=== PATIENT | male | born 1995 | race African-American/Black ===

== ENCOUNTER 2016-12-16 01:47 | Emergency (ER) | payer OTHER ==
[~2016-12-16] VITALS: Ht 170.2 cm; Wt 68.9 kg
[~2016-12-16 01:47] MED LIST: MOBIC15 MG PO; TRAMADOL HCL50 MG PO; ULTRAM50 MG PO
[2016-12-16 02:51] LABS: EOSINOPHIL (%) 2.3 % (0-5); EOSINOPHIL COUNT 0.2 K/uL (0-0.3); HEMATOCRIT 45.8 % (38.0-50.0); IMMATURE GRANULOCYTE (%) 0.3 % (0.0-0.7); LYMPHOCYTE COUNT 2.2 K/uL (1.0-2.8); MCH 25.7 PG (29.0-34.0); MCHC 32.1 G/DL (30.0-36.0); MCV 80.2 FL (86-99); MEAN PLAT.VOLUME 10.4 uM^3 (9.0-12.4); MONOCYTE (%) 10.4 % (3-12); MONOCYTE COUNT 0.7 K/uL (0-0.8); NEUTROPHIL (%) 55.7 % (45-76); PLATELET COUNT 262 K/uL (156-360); RBC DIS.WIDTH-CV 14.3 % (11.8-14.6); RBC DIS.WIDTH-SD 41.6 % (39-53); RED BLOOD COUNT 5.71 M/uL (4.00-5.50); WHITE BLOOD COUNT 7.1 K/uL (4.1-10.2)
[2016-12-16 04:05] LABS: CHLORIDE 106 mEq/L (99-109); POTASSIUM 3.9 mEq/L (3.7-5.4); SODIUM 138 mEq/L (136-147)
[2016-12-16 04:06] LABS: GLUCOSE 84 mg/dL (70-99)
[2016-12-16 04:08] LABS: ANION GAP 9 MEQ/L (2-14)
[2016-12-16 04:10] LABS: GFR ESTIMATE (CALCULATED) > 59 mL/min/; SERUM ETHYL ALCOHOL < 10 mg/dL
[2016-12-16 04:11] LABS: UREA NITROGEN (BUN) 14 mg/dL (9-23)
[2016-12-16 04:13] LABS: LIPASE 21 U/L (1.0-51.0)
[2016-12-16] MEDS ORDERED: PERCOCET 5/31 TABLET PO (04:14)
[2016-12-16] MEDS ORDERED: MOTRIN800 MG PO (04:14)
[2016-12-16] MEDS ORDERED: FLEXERIL5 MG PO (04:14)
[2016-12-16 04:19] LABS: ADD MIUA? YES; BILIRUBIN NEGATIVE; BLOOD NEGATIVE; GLUCOSE (STRIP) NEGATIVE; KETONES 5; LEUKOCYTES NEGATIVE; NITRITE NEGATIVE; PROTEIN (STRIP) 100
[2016-12-16 04:20] LABS: COLOR YELLOW ((YELLOW))
[2016-12-16 04:26] LABS: BACTERIA NONE SEEN /HPF; EPITHELIAL CELLS NONE SEEN /HPF; MUCUS TRACE /LPF; RED BLOOD CELLS 0-5 /HPF (0-5); UCUL ADDED? NO; WHITE BLOOD CELLS 0-5 /HPF (0-5)
[2016-12-16 04:27] LABS: COCAINE NEGATIVE (150 ng/mL); METHAMPHETAMINE NEGATIVE (500 ng/mL); OPIATES (MORPHINE) PRESUMPTIVE POSITIVE (100 ng/mL); PHENCYCLIDINE NEGATIVE (25 ng/mL); THC CANNABINOIDS NEGATIVE (50 ng/mL)
[2016-12-16 04:28] LABS: ADD MEDTOX COMMENT Y; AMPHETAMINE NEGATIVE (500 ng/mL); BARBITURATES NEGATIVE (200 ng/mL); BENZODIAZEPINES NEGATIVE (150 ng/mL); INTERNAL CONTROLS VALID? YES; METHADONE NEGATIVE (200 ng/mL); OXYCODONE PRESUMPTIVE POSITIVE (100 ng/mL); PROPOXYPHENE NEGATIVE (300 ng/mL); TRICYCLIC ANTIDEPRESSANTS NEGATIVE (300 ng/mL)
[2016-12-16 05:14] VITALS: BP 115/75
== END 2016-12-16 05:25 | disposition home or self-care (01) ==
LOC: EME → TRA 01:47
PROVIDERS: Emergency Medicine
DX: S32.029A Unspecified fracture of second lumbar vertebra, initial encounter for closed fracture (principal); S32.039A Unspecified fracture of third lumbar vertebra, initial encounter for closed fracture; S00.81XA Abrasion of other part of head, initial encounter; T14.8 Other injury of unspecified body region; V86.59XA Driver of other special all-terrain or other off-road motor vehicle injured in nontraffic accident, initial encounter; Y92.488 Other paved roadways as the place of occurrence of the external cause; M54.2 Cervicalgia
CPT/HCPCS: 70450; 70498; 71260; 72126; 72129; 72132; 74177; 80048; 81003; 83690; 84999; 85025; 86850; 86900; 86901; 99281; 99284; G0480; J2270; J2405; J7030

== ENCOUNTER → 2016-12-27 | Outpatient (CLI) | payer SELFPAY ==
[~2016-12-27] MED LIST changes: +FLEXERIL5 MG PO; +MOTRIN800 MG PO; +PERCOCET 5/31 TABLET PO
== END | disposition home or self-care (01) ==
LOC: AMB 15:00
DX: S32.039A Unspecified fracture of third lumbar vertebra, initial encounter for closed fracture (principal); S32.029A Unspecified fracture of second lumbar vertebra, initial encounter for closed fracture; V29.9XXA Motorcycle rider (driver) (passenger) injured in unspecified traffic accident, initial encounter; Y93.55 Activity, bike riding
CPT/HCPCS: 99212

== ENCOUNTER 2018-01-04 13:45 | Emergency (ER) | payer OTHER ==
[2018-01-04 13:55] LABS: BASOPHIL (%) 0.6 % (0-1); BASOPHIL COUNT 0.1 K/uL (0-0.1); EOSINOPHIL (%) 1.1 % (0-5); EOSINOPHIL COUNT 0.1 K/uL (0-0.3); HEMATOCRIT 47.7 % (38.0-50.0); IMMATURE GRANULOCYTE (%) 0.2 % (0.0-0.7); LYMPHOCYTE (%) 39.4 % (15-42); LYMPHOCYTE COUNT 3.2 K/uL (1.0-2.8); MCH 26.6 PG (29.0-34.0); MCHC 31.4 G/DL (30.0-36.0); MCV 84.7 FL (86-99); MONOCYTE COUNT 0.7 K/uL (0-0.8); NEUTROPHIL (%) 50.7 % (45-76); NEUTROPHIL COUNT 4.2 K/uL (1.8-6.4); PLATELET COUNT 278 K/uL (156-360); RBC DIS.WIDTH-SD 43.3 % (39-53); RED BLOOD COUNT 5.63 M/uL (4.00-5.50); WHITE BLOOD COUNT 8.2 K/uL (4.1-10.2)
[2018-01-04 14:03] LABS: AMYLASE 87 IU/L (1-118); CHLORIDE 107 mEq/L (99-109); POTASSIUM 3.8 mEq/L (3.7-5.4); SODIUM 145 mEq/L (136-147)
[2018-01-04 14:05] LABS: GLUCOSE 129 mg/dL (70-99)
[2018-01-04 14:08] LABS: SERUM ETHYL ALCOHOL < 10 mg/dL
[2018-01-04 14:09] LABS: CREATININE 1.8 mg/dL (0.6-1.3); GFR ESTIMATE (CALCULATED) > 59 mL/min/ (58.99-99999)
[2018-01-04 14:10] LABS: UREA NITROGEN (BUN) 12 mg/dL (9-23)
[2018-01-04 14:12] LABS: LIPASE 13 U/L (1.0-51.0)
[2018-01-04 15:42] LABS: APPEARANCE CLEAR ((CLEAR)); BILIRUBIN NEGATIVE; BLOOD NEGATIVE; COLOR COLORLESS ((YELLOW)); GLUCOSE (STRIP) NEGATIVE; KETONES NEGATIVE; LEUKOCYTES NEGATIVE; NITRITE NEGATIVE; PROTEIN (STRIP) NEGATIVE; SPECIFIC GRAVITY 1.024 (1.000-1.030); UCUL ADDED? NO; UROBILINOGEN 0.2 MG/DL (0.2-1.0)
[2018-01-04 15:54] LABS: AMPHETAMINE NEGATIVE (500 ng/mL); BARBITURATES NEGATIVE (200 ng/mL); BENZODIAZEPINES NEGATIVE (150 ng/mL); BUPRENORPHINE NEGATIVE (10 ng/mL); COCAINE NEGATIVE (150 ng/mL); METHADONE NEGATIVE (200 ng/mL); METHAMPHETAMINE NEGATIVE (500 ng/mL); OPIATES (MORPHINE) NEGATIVE (100 ng/mL); OXYCODONE NEGATIVE (100 ng/mL); PHENCYCLIDINE NEGATIVE (25 ng/mL); PROPOXYPHENE NEGATIVE (300 ng/mL); THC CANNABINOIDS NEGATIVE (50 ng/mL); TRICYCLIC ANTIDEPRESSANTS NEGATIVE (300 ng/mL)
[2018-01-04] MEDS ORDERED: MOTRIN600 MG PO (17:10)
[2018-01-04] MEDS ORDERED: KEFLEX500 MG PO (17:10)
[2018-01-05] MEDS ORDERED: PERCOCET 5/31 TABLET PO (00:18)
== END 2018-01-04 17:48 | disposition home or self-care (01) ==
LOC: TRA 13:45
PROVIDERS: Emergency Medicine
PROC: 0HQJXZZ Repair Left Upper Leg Skin, External Approach (ICD-10-PCS; principal; 2018-01-04)
PROC: 30233N1 Transfusion of Nonautologous Red Blood Cells into Peripheral Vein, Percutaneous Approach (ICD-10-PCS; principal; 2018-01-04)
DX: S71.112A Laceration without foreign body, left thigh, initial encounter (principal); S21.112A Laceration without foreign body of left front wall of thorax without penetration into thoracic cavity, initial encounter; E87.2 Acidosis; X99.1XXA Assault by knife, initial encounter
CPT/HCPCS: 71045; 71260; 73706; 74177; 80047; 80048; 81003; 82150; 83605; 83690; 85025; 86850; 86900; 86901; 86920; 99281; 99285; G0480; J0690; J2405; J3010; P9016

== ENCOUNTER 2018-01-04 19:13 | Emergency (ER) | payer OTHER ==
[~2018-01-04] VITALS: Ht 172.7 cm; Wt 68.9 kg
[~2018-01-04 19:13] MED LIST changes: +KEFLEX500 MG PO; +MOTRIN600 MG PO
[2018-01-04 20:21] LABS: BASOPHIL (%) 0.2 % (0-1); EOSINOPHIL (%) 0 % (0-5); HEMATOCRIT 37.1 % (38.0-50.0); IMMATURE GRANULOCYTE (%) 0.5 % (0.0-0.7); LYMPHOCYTE (%) 5.3 % (15-42); LYMPHOCYTE COUNT 0.7 K/uL (1.0-2.8); MCH 26.8 PG (29.0-34.0); MCHC 33.2 G/DL (30.0-36.0); MCV 80.8 FL (86-99); MONOCYTE (%) 6.2 % (3-12); MONOCYTE COUNT 0.8 K/uL (0-0.8); NEUTROPHIL (%) 87.8 % (45-76); NEUTROPHIL COUNT 11.7 K/uL (1.8-6.4); PLATELET COUNT 203 K/uL (156-360); RBC DIS.WIDTH-SD 40.7 % (39-53); RED BLOOD COUNT 4.59 M/uL (4.00-5.50); WHITE BLOOD COUNT 13.3 K/uL (4.1-10.2)
[2018-01-04 20:23] LABS: HEMOGLOBIN 12.3 G/DL (12.5-16.6)
[2018-01-04 20:29] LABS: CHLORIDE 107 mEq/L (99-109); POTASSIUM 3.5 mEq/L (3.7-5.4)
[2018-01-04 20:31] LABS: GLUCOSE 87 mg/dL (70-99); SODIUM 137 mEq/L (136-147); TOTAL PROTEIN 5.9 g/dL (6.4-8.3)
[2018-01-04 20:33] LABS: TOTAL BILIRUBIN 1.2 mg/dL (0.0-1.0)
[2018-01-04 20:35] LABS: ALKALINE PHOSPHATASE 68 IU/L (3-129); GFR ESTIMATE (CALCULATED) > 59 mL/min/ (58.99-99999)
[2018-01-04 20:36] LABS: UREA NITROGEN (BUN) 10 mg/dL (9-23)
[2018-01-04 20:37] LABS: AST (GOT) 21 IU/L (2-34)
[2018-01-04 20:38] LABS: ALT (GPT) 10 IU/L (3-49)
[2018-01-04 20:39] LABS: CREATININE 1.3 mg/dL (0.6-1.3)
[2018-01-05] MEDS ORDERED: PERCOCET 5/31 TABLET PO (00:18)
[2018-01-05 00:40] VITALS: BP 118/53
== END 2018-01-05 00:42 | disposition home or self-care (01) ==
LOC: EME 19:13
PROVIDERS: Emergency Medicine
DX: S31.823A Puncture wound without foreign body of left buttock, initial encounter (principal)
CPT/HCPCS: 71045; 80053; 85025 91; 99281; 99284; J0690; J1885; J2405; J7120

== ENCOUNTER 2018-01-14 12:50 | Emergency (ER) | payer OTHER ==
[~2018-01-14] VITALS: Ht 172.7 cm; Wt 68.9 kg
[2018-01-14 13:11] VITALS: BP 121/72
== END 2018-01-14 13:27 | disposition home or self-care (01) ==
LOC: EME 12:50
DX: S71.112D Laceration without foreign body, left thigh, subsequent encounter (principal); S21.219D Laceration without foreign body of unspecified back wall of thorax without penetration into thoracic cavity, subsequent encounter
CPT/HCPCS: 99281; 99283

== ENCOUNTER 2018-02-15 18:38 | Emergency (ER) | payer OTHER ==
[~2018-02-15] VITALS: Ht 172.7 cm; Wt 71.3 kg
[2018-02-15] MEDS ORDERED: MOTRIN600 MG PO (19:19)
[2018-02-15] MEDS ORDERED: ZOFRAN ODT8 MG PO (19:19)
[2018-02-15] MEDS ORDERED: FIORICET 50-301 EAC1 PO (19:19)
[2018-02-15 19:35] VITALS: BP 130/67
== END 2018-02-15 19:36 | disposition home or self-care (01) ==
LOC: EME 18:38
DX: S00.83XA Contusion of other part of head, initial encounter (principal); S06.0X9A Concussion with loss of consciousness of unspecified duration, initial encounter; Y04.0XXA Assault by unarmed brawl or fight, initial encounter; S01.81XD Laceration without foreign body of other part of head, subsequent encounter; W45.8XXD Other foreign body or object entering through skin, subsequent encounter; Z48.02 Encounter for removal of sutures
CPT/HCPCS: 99281; 99283